=== PATIENT | male | born 1980 ===

== ENCOUNTER 2017-08-08 13:27 | Emergency (ER) | payer BC ==
[2017-08-08 13:43] VITALS: BP 124/84
--- NOTE | 2017-08-08 14:49 | RAD ---
Indication: Right knee pain. 4 views of the right knee demonstrates no fracture. No other bone or joint abnormality is noted. IMPRESSION: No fracture of the right knee is noted.
--- NOTE | 2017-08-08 14:53 | UC ---
Valeriy Morillo Jennifer, scribed for Concepción Armstrong DO on 08/08/17 at 1405 . Knee Pain HPI - HPI Summary HPI Summary: The patient is a 37 year old male who complains of sharp knee pain for three weeks that worsened today. The patient describes the pain as a knife quickly stabbing my knee and rates the pain a 10/10. The patient reports that the pain was intermittent and used to last 1-2 seconds about 4 times per hour but is now closer to constant. He denies any aggravating or alleviating factors, as well as redness of the leg, swelling of the leg, and restrictions in range of motion. He adds that yesterday his leg felt hot. The patient reports the pain has been so severe that it interferes with his walking and sleeping. He last took Ibuprofen at 08:30 today, but it hasnt alleviated his pain. The patient denies fevers, sweats, chills, recent weight loss, ear ache, issues with eyes, shortness of breath, chest pain, abdominal pain, back pain, problems with urination, and swelling in the legs. - History of Current Complaint Chief Complaint: UCLowerExtremity Stated Complaint: PAIN INSIDE KNEE Time Seen by Provider: 08/08/17 13:42 Hx Obtained From: Patient Onset/Duration: Sudden Onset, Lasting Weeks - 3 weeks, Still Present, Worse Since - today Severity Initially: Severe Severity Currently: Severe Pain Intensity: 10 Pain Scale Used: 0-10 Numeric Character: Sharp - Feels like he's getting "stabbed by a knife" Aggravating Factor(s): Nothing Associated Signs And Symptoms: Negative: Swelling, Redness Able to Bear Weight: Yes - Allergies/Home Medications Allergies/Adverse Reactions: Allergies Allergy/AdvReac Type Severity Reaction Status Date / Time No Known Allergies Allergy Verified 08/08/17 13:36 Home Medications: Home Medications Ibuprofen 400 mg PO Q6HR PRN 08/08/17 [History Confirmed 08/08/17] PMH/Surg Hx/FS Hx/Imm Hx Previously Healthy: Yes - NEG: HTN, DM - Surgical History Surgical History: Yes Surgery Procedure, Year, and Place: wisdom teeth - Family History Known Family History: Positive: Cardiac Disease - Grandmother, Hypertension, Other - Prostate cancer - father; Hypercholesterolemia - Mother - Social History Alcohol Use: Occasionally Substance Use Type: None Smoking Status (MU): Never Smoked Tobacco Review of Systems Constitutional: Negative - Fever, sweats, chills, recent weight loss ENT: Negative - Ear ache, issues with eyes Respiratory: Negative - shortness of breath Cardiovascular: Negative - Chest pain Gastrointestinal: Negative - Abdominal pain Genitourinary: Negative - Problems with urination Musculoskeletal: Negative - Back pain, swelling of legs, Myalgia - Knee pain, Other: - Right leg felt "hot" All Other Systems Reviewed And Are Negative: Yes Physical Exam - Summary Physical Exam Summary: Appearance: Well-Appearing, No Pain Distress, Well-Nourished Eyes: conjunctiva clear, no discharge ENT: Hearing grossly normal, no muffled/hoarse voice. Neck: Normal, Supple Respiratory/Lung Sounds: Lungs clear, Normal breath sounds, No respiratory distress, No accessory muscle use Cardiovascular: RRR, No murmur Musculoskeletal: Normal. No redness/swelling/defect.No tenderness to palpation. Strength, sensation, reflex intact bilaterally, inspection normal. Calves are symmetrical, Isreal's sign is negative. Straight leg test is negative bilaterally. No paraformous tenderness elicited, no paraspinous tenderness elicited. Neurological: Alert, muscle tone normal Psychiatric:Normal, age appropriate behavior Skin: Normal, Warm, Dry, Normal color Triage Information Reviewed: Yes Vital Signs: Initial Vital Signs Temp 97.5 F 08/08/17 13:33 Pulse 61 08/08/17 13:33 Resp 18 08/08/17 13:33 BP 124/84 08/08/17 13:33 Pulse Ox 98 08/08/17 13:33 Vital Signs Reviewed: Yes Diagnostics - Radiology Knee XR Xray Interpretation: No Acute Changes - No fracture of the right knee is noted. Dr. Armstrong has reviewed this report. Radiology Interpretation Completed By: Radiologist Knee Pain Course/Dx - Course Course Of Treatment: Knee XR showed no fracture of the right knee is noted. Medications reviewed. - Differential Dx/Diagnosis Provider Diagnoses: Elevated blood pressure without diagnosis of hypertension, Knee pain Discharge - Discharge Plan Condition: Stable Disposition: HOME Patient Education Materials: Knee Pain (ED) Forms: *Work Release Referrals: Carolina Preston MD [Medical Doctor] - (follow up in 1-5 days) Susy Caballero MD [Primary Care Provider] - If Needed () Additional Instructions: We are not sure what is causing the pain in your knee. We have done an xray to rule out torrie pathology. That xray was unrevealing. Please follow up with Dr. Preston for further evaluation. The documentation as recorded by the Valeriy ham Jennifer accurately reflects the service I personally performed and the decisions made by me, Concepción Armstrong DO.
== END 2017-08-08 14:52 | disposition home or self-care (01) ==
LOC: UCEAST 13:27
DX: M25.561 Pain in right knee (principal); R03.0 Elevated blood-pressure reading, without diagnosis of hypertension
CPT/HCPCS: 99212; G0463